=== PATIENT | female | born 1990 | race Asian ===

== ENCOUNTER 2016-10-16 10:56 | Emergency (ER) | payer OTHER ==
[~2016-10-16] VITALS: Ht 154.9 cm; Wt 47.6 kg
[2016-10-16] MEDS ORDERED: KETOROLAC TROMETHAMINE 30 MG/ML SYRINGE. IV ONE (12:15)
--- NOTE | 2016-10-16 12:45 | RAD ---
EXAM: Chest, single view. HISTORY: Chest pain. COMPARISON: None. FINDINGS: A frontal view of the chest is obtained. There is no infiltrate, effusion or pneumothorax. The heart is normal in size. IMPRESSION: No acute pulmonary finding.
--- NOTE | 2016-10-16 12:55 | EKG ---
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
[2016-10-16 13:10] LABS: BASO % 1 % (0-3); EOS % 1 % (0-3); HEMATOCRIT 38.6 % (36.0-47.0); HEMOGLOBIN 12.4 g/dL (12.0-15.5); LYMPH # 2.1 x10^3/uL (1.0-4.8); LYMPH % 42 % (24-48); MEAN CORPUSCULAR HEMOGLOBIN 28 pg (25-35); MEAN CORPUSCULAR HGB CONC 32 g/dL (31-37); MEAN CORPUSCULAR VOLUME 87 fL (79-100); MONO % 5 % (0-9); NEUT % 52 % (31-73); PLATELET COUNT 219 x10^3/uL (140-400); RED BLOOD COUNT 4.45 x10^6/uL (3.50-5.40); RED CELL DISTRIBUTION WIDTH 13.5 % (11.5-14.5); WHITE BLOOD COUNT 5.1 x10^3/uL (4.0-11.0)
[2016-10-16 13:59] LABS: CALCIUM 8.8 mg/dL (8.5-10.1); CREATININE 0.6 mg/dL (0.6-1.0); GFR 119.9
[2016-10-16 14:01] LABS: POTASSIUM 2.9 mmol/L (3.5-5.1)
[2016-10-16] MEDS ORDERED: HYDROCODONE/APAP 5/325MG TABLET. PO ONE (14:15)
[2016-10-16] MEDS ORDERED: POTASSIUM CHLORIDE 20 MEQ/15 ML ORAL LIQUID. PO ONE (14:15)
[2016-10-16] MEDS ORDERED: POTA10CA PO (14:16)
--- NOTE | 2016-10-16 14:16 | PHYS DOC ---
Past Medical History Past Medical History: Migraines Past Surgical History: No Surgical History Alcohol Use: None Drug Use: None Adult General Chief Complaint Chief Complaint: CHEST WALL PAIN HPI HPI Patient is a 25 year old female who presents with chest pain. Patient reports sharp pain across bilateral chest which worsens with deep breathing. Pain present x at least 7 days. Denies radiation of pain. Reports shortness of breath, denies nausea/diaphoresis. Denies fevers/chills, cough, lower extremity pain/swelling. She denies previous history of similar symptoms. Also reports 3 day history of bifrontal aching/throbbing headache which was not sudden in onset, not the worst headache of her life, similar to previous headaches she describes as migraine. Took advil this morning without relief of pain symptoms. No known past medical history including DVT/PE, no recent surgery or immobilization or travel, no exogenous hormones, nonsmoker. No family history of premature CAD or DVT/PE. Review of Systems Review of Systems Constitutional: Denies fever or chills Eyes: Denies change in visual acuity HENT: Denies nasal congestion or sore throat Respiratory: Denies cough, reports shortness of breath Cardiovascular: Reports chest pain, denies edema GI: Denies abdominal pain, nausea, vomiting Musculoskeletal: Denies back pain or joint pain Integument: Denies rash or skin lesions Neurologic: Reports headache, denies focal weakness or sensory changes Current Medications Current Medications Current Medications Medications (Trade) Dose Ordered Sig/Zahida Start Time Stop Time Status Last Admin Dose Admin Acetaminophen/ Hydrocodone Bitart (Lortab 5/325) 2 tab 1X ONCE 10/16/16 14:15 10/16/16 14:16 DC Ketorolac Tromethamine (Toradol) 30 mg 1X ONCE 10/16/16 12:15 10/16/16 12:16 DC 10/16/16 13:16 30 MG Potassium Chloride (KCl Oral Soln) 40 meq 1X ONCE 10/16/16 14:15 10/16/16 14:16 DC 10/16/16 15:14 40 MEQ Allergies Allergies Allergies Coded Allergies Type Severity Reaction Last Updated Verified No Known Drug Allergies 10/16/16 No Physical Exam Physical Exam Constitutional: Well developed, well nourished, no acute distress, non-toxic appearance. HENT: Normocephalic, atraumatic, bilateral external ears normal, oropharynx moist, nose normal. Eyes: PERRLA, EOMI, conjunctiva normal, no discharge. Neck: supple, no stridor. no nuchal rigidity Cardiovascular: RRR, no murmurs, no edema. Lungs & Thorax: LCTAB, no wheezing, no respiratory distress. reproducible tenderness with palpation over bilateral anterior chest wall. Abdomen: soft, nontender, nondistended. Skin: Warm, dry, no erythema, no rash. Back: No tenderness. Extremities: No tenderness, no edema. no calf tenderness or swelling. Neurologic: Alert and oriented X 3, CN-12 grossly intact, symmetric strength/ sensation to UE & LE, 2no focal deficits noted. Psychologic: Affect normal, judgement normal, mood normal. Current Patient Data Vital Signs Vital Signs Date Time Temp Pulse Resp B/P Pulse Ox O2 Delivery O2 Flow Rate FiO2 10/16/16 15:08 61 16 101/65 98 10/16/16 11:17 98.4 Room Air 98.4 Lab Values Laboratory Tests Test 10/16/16 11:23 10/16/16 13:00 10/16/16 13:38 POC Urine HCG, Qualitative Hcg negative (Negative) White Blood Count 5.1x10^3/uL (4.0-11.0) Red Blood Count 4.45x10^6/uL (3.50-5.40) Hemoglobin 12.4g/dL (12.0-15.5) Hematocrit 38.6% (36.0-47.0) Mean Corpuscular Volume 87fL (79-100) Mean Corpuscular Hemoglobin 28pg (25-35) Mean Corpuscular Hemoglobin Concent 32g/dL (31-37) Red Cell Distribution Width 13.5% (11.5-14.5) Platelet Count 219x10^3/uL (140-400) Neutrophils (%) (Auto) 52% (31-73) Lymphocytes (%) (Auto) 42% (24-48) Monocytes (%) (Auto) 5% (0-9) Eosinophils (%) (Auto) 1% (0-3) Basophils (%) (Auto) 1% (0-3) Neutrophils # (Auto) 2.7x10^3uL (1.8-7.7) Lymphocytes # (Auto) 2.1x10^3/uL (1.0-4.8) Monocytes # (Auto) 0.2x10^3/uL (0.0-1.1) Eosinophils # (Auto) 0.1x10^3/uL (0.0-0.7) Basophils # (Auto) 0.0x10^3/uL (0.0-0.2) D-Dimer (Keisha) < 0.27ug/mlFEU (0.00-0.50) Sodium Level 143mmol/L (136-145) Potassium Level 2.9mmol/L (3.5-5.1) *L Chloride Level 106mmol/L (98-107) Carbon Dioxide Level 25mmol/L (21-32) Anion Gap 12 (6-14) Blood Urea Nitrogen 8mg/dL (7-20) Creatinine 0.6mg/dL (0.6-1.0) Estimated GFR (Cockcroft-Gault) 119.9 Glucose Level 82mg/dL (70-99) Calcium Level 8.8mg/dL (8.5-10.1) Troponin I Quantitative < 0.017ng/mL (0.000-0.055) Laboratory Tests 10/16/16 13:00 Laboratory Tests 10/16/16 13:38 EKG EKG Interpreted by me: Normal sinus rhythm rate 68, no ST elevation, T waves inverted in V1 through V3, normal intervals, no ectopy [] Radiology/Procedures Radiology/Procedures PROCEDURE: CHEST PA & LATERAL EXAM: Chest, single view. HISTORY: Chest pain. COMPARISON: None. FINDINGS: A frontal view of the chest is obtained. There is no infiltrate, effusion or pneumothorax. The heart is normal in size. IMPRESSION: No acute pulmonary finding. DICTATED and SIGNED BY: YISEL GARIBAY MD DATE: 10/16/16 1556 [] Course & Med Decision Making Course & Med Decision Making Pertinent Labs and Imaging studies reviewed. (See chart for details) Patient presents with chest pain. Atypical for ACS, low risk. Headache no concerning features. Gave toradol & norco for pain & her pain resolved. Obtained labs including d dimer, EKG, CXR. No serious abnormality identified. She was comfortable with discharge home. Potassium replaced orally & additional prescription given. Recommend rest, PO hydration, tylenol/ibuprofen for pain, follow up with a primary care doctor if not improving in 2-3 days. Gave referral to Dr. Rehman. Return for high fever, worst headache of her life, severe chest pain or shortness of breath, any otherwise worsening condition. Discharged home in stable & improved condition. [] Dragon Disclaimer Dragon Disclaimer This electronic medical record was generated, in whole or in part, using a voice recognition dictation system. Departure Departure Impression: Primary Impression: Chest pain Additional Impressions: Headache Hypokalemia Disposition: HOME, SELF-CARE Condition: STABLE Referrals: NO PCP (PCP) SEEMA REHMAN MD Patient Instructions: Chest Pain (Nonspecific), Hypokalemia Additional Instructions: You were seen in the emergency department today for chest pain. Tests did not show a serious cause of symptoms. This may be muscle pain. Please take Tylenol or ibuprofen as needed. Potassium level was low here. Please take supplements as prescribed. Follow-up with Dr. Daniels in the primary care clinic within the next week if symptoms continue, or choose another primary care doctor. Return to the emergency department for severe chest pain or shortness of breath, or any otherwise worsening condition. Scripts Potassium Chloride 10 Meq Capsule.er20 Meq PO DAILY #6 TAB.SR Prov:JOSEFINA HOLLOWAY MD 10/16/16 Problem Qualifiers JOSEFINA HOLLOWAY MD Oct 16, 2016 14:16
[2016-10-16 15:08] VITALS: BP 101/65
== END 2016-10-16 15:16 | disposition home or self-care (01) ==
LOC: ER 10:56
DX: R07.89 Other chest pain (principal); R51 Headache; E87.6 Hypokalemia; R06.02 Shortness of breath; G43.909 Migraine, unspecified, not intractable, without status migrainosus
CPT/HCPCS: 36415; 71020; 80048; 81025; 84484; 85027; 85379; 93005; 96374; 99285; J1885